=== PATIENT | female | born 1985 | race African-American/Black ===

== ENCOUNTER 2018-04-17 15:34 | Emergency (ER) | payer OTHER ==
[~2018-04-17] VITALS: Ht 167.6 cm; Wt 81.7 kg
--- NOTE | ~2018-04-17 | EKG ---
[address] [place] [address] ELECTROCARDIOGRAM REPORT Name: GEORGE JOSHI Room #: [facility]#: [id number] Admission: 04/17/18 Attend Phys: Discharge: 04/17/18 Date of : 89 Report #: [id number] THIS REPORT FOR: //name// [facility] ED Test Date: 2018-04-17 Test Time: 16:13:02 Pat Name: GEORGE JOSHI Department: Room: Gender: F [employer]: [employer] : 1985 Requested By: Loretta Otero Order Number: [id number] MD: Vamshi King Measurements Intervals [place] Rate: 68 P: 32 NM: 140 QRS: 43 QRSD: 97 T: 44 QT: 381 QTc: 406 Interpretive Statements Sinus rhythm No significant abnormality No previous ECG available for comparison Electronically Signed On 04-18-2018 8:32:09 CDT by Vamshi King [email or web address] <ELECTRONICALLY SIGNED> By: Vamshi King MD, [facility] 04/18/18 0832 1613 1613 Vamshi King MD, FACC /EPI
[2018-04-17] MEDS ORDERED: KEPPRA 500 MG500 M1 PO (15:41)
[2018-04-17 15:51] LABS: ABSOLUTE NEUTROPHILS 6.3 thou/uL (1.4-8.2); BASOPHILS 0.5 % (0.0-2.0); EOSINOPHILS 0.2 % (0.0-3.0); HEMATOCRIT 39.1 % (37.0-47.0); HEMOGLOBIN 13.1 gm/dL (12.0-15.0); LYMPHOCYTES 22.1 % (24.0-44.0); MCH 31.4 pg (26.0-34.0); MCHC 33.5 g/dL (28.0-37.0); MCV 93.7 fL (80.0-100.0); PLATELET COUNT 213 thou/uL (150-400); POLYS 73.2 % (36.0-66.0); RBC 4.17 mil/uL (4.20-5.00); RDW 14.6 % (10.5-14.5); WBC 8.6 thou/uL (4.0-11.0)
[2018-04-17 16:03] LABS: CALCIUM 9.2 mg/dL (8.5-10.1); CREATININE 0.8 mg/dL (0.6-1.0); POTASSIUM 3.9 mmol/L (3.5-5.1)
[2018-04-17 16:08] LABS: ALBUMIN 3.8 g/dL (3.4-5.0); MAGNESIUM 1.9 mg/dL (1.8-2.4); TOTAL BILIRUBIN 0.3 mg/dL (<0.1-1.0); TOTAL PROTEIN 7.9 g/dL (6.4-8.2)
[2018-04-17 16:15] LABS: AMP/METHAMP Negative (Negative); BARBITURATES Negative (Negative); BENZODIAZEPINES Negative (Negative); COCAINE Negative (Negative); METHADONE Negative (Negative); OPIATES Negative (Negative); PCP Negative (Negative); URINE BILIRUBIN NEGATIVE (Negative); URINE BLOOD NEGATIVE (Negative); URINE CLARITY CLEAR; URINE COLOR YELLOW; URINE GLUCOSE-RANDOM* NEGATIVE (Negative); URINE KETONES NEGATIVE (Negative); URINE NITRITE-REFLEX NEGATIVE (Negative); URINE PROTEIN (DIPSTICK) NEGATIVE (Negative); URINE UROBILINOGEN 0.2 E.U./dl (0.2-1.0)
[2018-04-17 16:18] LABS: URINE LEUKOCYTES-REFLEX TRACE (Negative)
[2018-04-17] MEDS ORDERED: KEPPRA250 MG PO (17:22)
[2018-04-17 17:28] VITALS: BP 124/75
== END 2018-04-17 17:33 | disposition home or self-care (01) ==
LOC: ER 15:34
PROVIDERS: Physician Assistant
DX: R56.9 Unspecified convulsions (principal); I95.1 Orthostatic hypotension; F12.90 Cannabis use, unspecified, uncomplicated; Z91.14 Patient's other noncompliance with medication regimen